=== PATIENT | female | born 2000 | race Caucasian/White ===

== ENCOUNTER 2020-06-17 06:46 | Emergency (ER) | payer BC, SELFPAY ==
--- NOTE | ~2020-06-17 | CT_ITS ---
EXAMINATION: CTA BRAIN/CAROTID DATE: 06/17/2020 08:25 INDICATION: Left-sided headache and TIA with visual changes TECHNIQUE: Computed tomographic angiography (CTA) of the head and neck was performed with 100 mL Omni paque-350 intravenous contrast. Multiplanar reconstructions and maximum intensity projection 3D-recon structions of the carotid arteries and of the intracranial arteries were created by the technologist on a separate workstation. Precontrast CT of the head was also obtained. Automated exposure control and iterative reconstruction technique were employed.The dose-length product was 1483.02 mGy-cm. COMPARISON: None. FINDINGS: Carotid arteries: The visualized portions of the great vessels including the bilateral common, external and internal ca rotid arteries appear normal with no evident atherosclerotic plaque or dissection. Specifically there is 0% stenosis of the right and left carotid bulbs relative to normal distal artery lumen diameter ( NASCET criteria). Cervical soft tissues are unremarkable. Visualized airway and apices of lungs are c lear. Likely positional mild reversal of the normal cervical lordosis. Bones are otherwise unremarkab le. Head: No acute intracranial hemorrhage, acute infarction or abnormal extra axial fluid collection. Ventricl es are normal and symmetric. No mass/mass effect. The orbits, paranasal sinuses and mastoid air cells are normal. Intracranial arteries There is no hemodynamically significant stenosis in the vertebral, basilar and internal carotid arter ies. Right vertebral artery is mildly dominant. There are no aneurysms identified. Both A1 and P1 se gments are patent. There are patent anterior communicating and right posterior communicating arteries . Cerebral arterial arborization appears symmetric. IMPRESSION: 1. Normal carotid and cerebral CT angiogram. No acute intracranial process. Reviewed, dictated and finalized at location A.
[2020-06-17 06:51] VITALS: BP 122/87; PULSE 98; RESP 18; TEMP 37.5; O2SAT 97
--- NOTE | 2020-06-17 07:20 | ED.HA ---
HPI - Headache General Chief Complaint: Headache Stated Complaint: GUERRERO, pain behind left eye Time Seen by Provider: 06/17/20 07:02 History of Present Illness HPI Narrative: Patient is a 20-year-old female who presents ER with migraine headache. It is located behind her left eye and causing throbbing pain. Its associated with some blurring of her vision. This is typical of her migraines but is more intense. Usually her migraines go away when taking Excedrin but she has taken but it did not resolve her headache. No trauma. 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 She has no fevers or chills or sweats/nausea/vomiting or focal weakness/numbness in arm or leg. She is scheduled to go to the migraine clinic in December 2020. She does have a family history of a grandfather with an inoperable brain aneurysm. Related Data Home Medications Medication Instructions Recorded Confirmed amitriptyline 10 mg PO HS 06/17/20 sertraline 50 mg PO DAILY 06/17/20 Allergies Allergy/AdvReac Type Severity Reaction Status Date / Time No Known Allergies Allergy Verified 06/17/20 06:54 Review of Systems Review of Systems: All systems reviewed & are unremarkable except as noted in HPI and below Constitutional: Constitutional: Denies chills, Denies fever(s) and Denies weakness Eyes: Eyes: Reports change in vision and Reports photophobia Gastrointestinal: Gastrointestinal: Denies nausea Neurologic: Reports headache(s), Denies focal weakness and Denies numbness PMFSH Past Medical History Medical History (Updated 06/17/20 @ 09:28 by Gildardo Arshad MD) Abdominal migraine Migraine Surgical History Surgical History (Updated 06/17/20 @ 07:21 by Gildardo Arshad MD) No pertinent past surgical history Social History Social History (Updated 06/17/20 @ 07:21 by Gildardo Arshad MD) Smoking status: Never smoker Alcohol use details: Social Substance use: never Exam Narrative: Exam Narrative: GENERAL: Uncomfortable-appearing sitting in the dark with a cool rag on her eye, well-nourished. HEAD: Normocephalic, atraumatic. EYES: PERRLA and EOMI. ENT: Mucous membranes moist. CHEST: Clear to auscultation. No respiratory distress. HEART: Regular rate and rhythm. Normal peripheral pulses. EXTREMITIES: Normal range of motion. No edema. NEURO: No focal deficits. Alert and oriented x3. Course Course Emergency Course: Headache resolved with Reglan/Benadryl/Toradol. CTA without evidence of aneurysm. Discharge home with Fioricet Vital Signs Vital signs: Vital Signs Temperature 99.5 F 06/17/20 06:51 Pulse Rate 98 06/17/20 06:51 Respiratory Rate 18 06/17/20 06:51 Blood Pressure 122/87 06/17/20 06:51 Pulse Oximetry 97 06/17/20 06:51 Temperature 99.5 F 06/17/20 06:51 Pulse Rate 98 06/17/20 06:51 Respiratory Rate 18 06/17/20 06:51 Blood Pressure 122/87 06/17/20 06:51 Pulse Oximetry 97 06/17/20 06:51 MDM - Headache Lab Data Result diagrams: 06/17/20 07:38 Labs: Lab Results 06/17/20 Range/Units 07:38 Creatinine 0.70 (0.7-1.0) mg/dL Estim Creat Clear Calc 97 ml/min Estimated GFR > 60 (59 - ) UCG Bedside Result Negative Reference Range: Negative Imaging Data Radiologist's impression: ITS Impressions Head/Neck CTA 06/17/20 08:31 IMPRESSION: 1. Normal carotid and cerebral CT angiogram. No acute intracranial process. Discharge Plan Discharge Clinical Impression: Migraine Patient Disposition: Home, Self-Care Condition: Stable Instructions: Migraine Headache (ED) Additional Instructions: Return the ER if you have chest pain or shortness of breath, you cannot keep down food or water, you have fever over 100.4 ?F, you have additional concerns. Prescriptions: New buta
[2020-06-17] MEDS: METOCLOPRAMIDE HCL INJ 10 MG/2 ML VIAL IV PUSH (07:35)
[2020-06-17] MEDS: diphenhydrAMINE HCl INJ 50 MG/ML VIAL 25 MG IV PUSH (07:35)
[2020-06-17] MEDS: SODIUM CHLORIDE 0.9% IV 1,000 ML 999 ML IV CONT (07:36)
[2020-06-17] MEDS: KETOROLAC 30 MG/ML VIAL (*BKC) IV PUSH (07:36)
[2020-06-17 07:55] LABS: Estimated CRCL calculation 97 ml/min; Estimated Glomerular Filt Rate > 60
[2020-06-17 08:24] VITALS: BP 98/66; PULSE 56; RESP 18; O2SAT 100
== END 2020-06-17 09:42 | disposition home or self-care (01) ==
PROVIDERS: Emergency Provider Emergency Medicine
DX: G43.909 Migraine, unspecified, not intractable, without status migrainosus (principal)
CPT/HCPCS: 36415; 70496; 70498; 81025; 82565; 96361; 96374; 96375; 99284; J1200; J1885; J2765; J7030; Q9967

== ENCOUNTER 2021-02-26 16:38 | Emergency (ER) | payer BC, SELFPAY ==
[2021-02-26 17:10] VITALS: BP 149/93; PULSE 89; RESP 16; TEMP 36.8; O2SAT 100
--- NOTE | 2021-02-26 17:44 | ED.FEMALEGU ---
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 Reports she was in the middle of having intercourse and noted some pain and bleeding. She felt like she had a laceration to the labia, but was unable to see for sure. She called her SNAP ATTACHER whose office was closing, so she was told to present to the ED. She is unsure of her last tetanus vaccine. Denies fever. <Aurora Hicks PA-C - Last Filed: 02/26/21 19:42> Related Data Home medications: Home Medications Medication Instructions Recorded Confirmed amitriptyline 20 mg PO HS 06/17/20 02/26/21 sertraline 50 mg PO DAILY 06/17/20 02/26/21 <Aurora Hicks PA-C - Last Filed: 02/26/21 19:42> Allergies/Adverse reactions: Allergies Allergy/AdvReac Type Severity Reaction Status Date / Time No Known Allergies Allergy Verified 02/26/21 17:23 <SUSAN Xie Last Filed: 02/26/21 19:42> Review of Systems Review of Systems: Narrative: CONSTITUTIONAL: Denies fever SKIN: Reports laceration <SUSAN Xie Last Filed: 02/26/21 19:42> All systems reviewed & are unremarkable except as noted in HPI and below <Aurora Hicks PA-C - Last Filed: 02/26/21 19:42> PMFSH Past Medical History Medical History: Medical History (Updated 02/27/21 @ 00:00 by Rosita Quinn) Abdominal migraine Migraine <Aurora Hicks PA-C - Last Filed: 02/26/21 19:42> Surgical History Surgical History: Surgical History (Updated 06/17/20 @ 07:21 by Gildardo Arshad MD) No pertinent past surgical history <Aurora Hicks PA-C - Last Filed: 02/26/21 19:42> Social History Social History: Social History (Updated 06/17/20 @ 07:21 by Gildardo Arshad MD) Smoking status: Never smoker Substance use: never Gender identity (if verbalized by the patient): Female <Aurora Hicks PA-C - Last Filed: 02/26/21 19:42> Exam Narrative: Exam Narrative: GENERAL: Well-appearing, well-nourished, and in no acute distress. HEAD: Normocephalic, atraumatic. EYES: EOMI. EXTREMITIES: Normal range of motion. No edema. SKIN: Warm, dry, no rash. NEURO: No focal deficits. Alert and oriented x3. PSYCH: Normal mood and affect FEMALE UROGENITAL: 2cm linear laceration of the labia minora, bleeding is controlled <Aurora Hicsk PA-C - Last Filed: 02/26/21 19:42> Course TRADEMARK ATTORNEY/PA Physician Supervision Patient with laceration to the right labia minora with penetrating intercourse. Pt and significant other state no sharp objects used. pt with a 2 cm laceration with minimal active bleeding. No maceration of tissue. No other ecchymoses or lacerations. No vesicles on exam. Given location and size, OBGYN credit administration officer Dr. Arteaga contacted and does recommend placing absorbable sutures. Will manage as such with proper wound care and follow up also. Pt has an OBGYN in [place] also for follow up if needed. Pt tolerated suturing well without complications. Area was probed and cleaned. Sutured as detailed. For this patient encounter, I reviewed the TRADEMARK ATTORNEY or PA documentation, treatment plan, and medical decision making; and I had [id number] time with this patient. <Nicole Harley MD - Last Filed: 02/27/21 07:06> Vital Signs Vital signs: Vital Signs Temperature 36.8 C 02/26/21 17:10 Pulse Rate
[2021-02-26] MEDS: TETANUS,DIPHTHERIA,AC PERTUSSIS ADULT (0.5 ML) BOOSTRIX IM (18:24)
[2021-02-26 19:50] VITALS: BP 111/77; PULSE 70; RESP 16; O2SAT 100
== END 2021-02-26 19:50 | disposition home or self-care (01) ==
PROVIDERS: Emergency Provider Emergency Medicine; PCP Internal Medicine
DX: S31.41XA Laceration without foreign body of vagina and vulva, initial encounter (principal); Z23 Encounter for immunization; X58.XXXA Exposure to other specified factors, initial encounter
CPT/HCPCS: 12001; 90471; 90715; 99283